=== PATIENT | male | born 1955 | race Caucasian/White ===

== ENCOUNTER 2022-03-07 05:35 | Day surgery (SDC) | payer MEDICARE ==
[~2022-03-07] VITALS: Ht 175.3 cm; Wt 82.2 kg
[~2022-03-07 05:35] MED LIST: ASPI-1450 PO; MULT-1077 PO; NAPR-1025 PO; OMEP20 PO; TAMS-13 PO; TRAM50TA4 PO
[2022-03-07] MEDS ORDERED: ASPIRIN 81 MG CHEWABLE TABLET ONE (07:02)
[2022-03-07] MEDS ORDERED: DiphenhydrAMINE HCL 50 MG CAPSULE ONE (07:03)
[2022-03-07] MEDS ORDERED: DIAZEPAM 5 MG TABLET ONE (07:04)
[2022-03-07] MEDS ORDERED: FentaNYL CITRATE PF 100 MCG/2 ML VIAL ONE (07:13)
[2022-03-07] MEDS ORDERED: SODIUM BICARBONATE 50 MEQ/50 ML VIAL ONE (07:14)
[2022-03-07] MEDS ORDERED: IOHEXOL 300 MG/ML 150 ML VIAL ONE (07:14)
[2022-03-07] MEDS ORDERED: HEPARIN SODIUM,PORCINE 1,000 UNITS/ML 10 ML VIAL ONE (07:14)
[2022-03-07] MEDS ORDERED: HEPARIN SODIUM 1000 UNITS/NS 1,000 ML ONE (07:14)
[2022-03-07] MEDS ORDERED: LIDOCAINE/PF 1% 30 ML VIAL ONE (07:14)
[2022-03-07] MEDS ORDERED: IOHEXOL 300 MG/ML 100 ML VIAL ONE (07:14)
[2022-03-07] MEDS ORDERED: MIDAZOLAM HCL 2 MG/2 ML VIAL ONE (07:14)
[2022-03-07] MEDS ORDERED: IOHEXOL 300 MG/ML 50 ML VIAL ONE (07:14)
[2022-03-07] MEDS ORDERED: SODIUM BICARBONATE 50 MEQ/50 ML VIAL SQ ONE (07:30)
[2022-03-07] MEDS ORDERED: IOHEXOL 300 MG/ML 150 ML VIAL ICOR ONE (07:30)
[2022-03-07] MEDS ORDERED: LIDOCAINE 1% 20 ML VIAL SQ ONE (07:30)
[2022-03-07] MEDS ORDERED: HEPARIN SODIUM 1000 UNITS/NS 1,000 ML IARTER ONE (07:30)
[2022-03-07] MEDS ORDERED: LIDOCAINE/PF 1% 30 ML VIAL SQ ONE (07:45)
[2022-03-07] MEDS ORDERED: FentaNYL CITRATE PF 100 MCG/2 ML VIAL IVP ONE (08:00)
[2022-03-07] MEDS ORDERED: MIDAZOLAM HCL 2 MG/2 ML VIAL IVP ONE (08:00)
[2022-03-07] MEDS ORDERED: SODIUM CHLORIDE 0.9% 1,000 ML IV ONE (08:30)
[2022-03-07] MEDS ORDERED: ACETAMINOPHEN 1000 MG/ISO-OSM 100 ML IV ONE (09:15)
[2022-03-07] MEDS ORDERED: DIAZEPAM 5 MG TABLET PO ONE (10:30)
[2022-03-07] MEDS ORDERED: DiphenhydrAMINE HCL 50 MG CAPSULE PO ONE (10:30)
[2022-03-07] MEDS ORDERED: ASPIRIN 81 MG CHEWABLE TABLET PO ONE (10:30)
== END 2022-03-07 12:30 | disposition home or self-care (01) ==
LOC: CATHLAB 05:35
PROVIDERS: ATTEND Internal Medicine Interventional Cardiology
DX: R94.39 Abnormal result of other cardiovascular function study (principal); I25.10 Atherosclerotic heart disease of native coronary artery without angina pectoris; E11.9 Type 2 diabetes mellitus without complications; E78.5 Hyperlipidemia, unspecified; Z82.49 Family history of ischemic heart disease and other diseases of the circulatory system; Z98.890 Other specified postprocedural states; Z79.899 Other long term (current) drug therapy
CPT/HCPCS: 93005; 93458; 99152; C1760; J0131; J1644 ×2; J2250; J3010; J3490 ×2; Q9967